=== PATIENT | female | born 1985 | race Caucasian/White ===

== ENCOUNTER 2017-11-10 10:51 | Emergency (ER) | payer SELFPAY ==
[~2017-11-10] VITALS: Ht 162.6 cm; Wt 61.2 kg
[2017-11-10 10:55] VITALS: BP_SYST 148
--- NOTE | 2017-11-10 11:40 | NUR ---
Pt complains of having pelvic pain for two days. Per patient, she was here and diagnosed with a UTI and was prescribed Bactrim. Pt states she is still in pain while urinating. Pt denies fever, N/V, or diarrhea. No other injuries/complaints per patient.
--- NOTE | 2017-11-10 11:47 | NUR ---
Patient to ER bed 7 to gown for evaluation. Side rails up. Report given to Malika YANG.
--- NOTE | 2017-11-10 11:55 | NUR ---
ER Dr. Turpin at bedside examining patient.
[2017-11-10 12:12] LABS: BILIRUBIN,URINE 1+ (NEGATIVE); BLOOD, URINE 3+ (NEGATIVE); CLARITY/URINE HAZY (CLEAR); COLOR,URINE YELLOW (YELLOW); GLUCOSE,URINE NEGATIVE (NEGATIVE); KETONES,URINE TRACE (NEGATIVE); LEUKOCYTE ESTERASE ,URINE NEGATIVE (NEGATIVE); NITRITE, URINE NEGATIVE (NEGATIVE); PH,URINE 6.5 (5.0-8.0); PROTEIN URINE 1+ (NEGATIVE); UROBILINOGEN,URINE 0.2 (0.2-1.0)
[2017-11-10 12:27] LABS: BACTERIA,URINE RARE /HPF (None Seen); RBC,URINE 20-50 /HPF (0-3); WBC,URINE 0-3 /HPF (0-3)
--- NOTE | 2017-11-10 12:49 | NUR ---
Pt went to radiology in stable condition.
[2017-11-10 13:02] LABS: BASOPHILS % (AUTO) 0.7 % (0.0-2.0); EOSINOPHILS # (AUTO) 0.1 K/uL (0.0-0.4); EOSINOPHILS % (AUTO) 1.9 % (0.0-4.0); HEMOGLOBIN 13.6 g/dL (12.0-16.0); LYMPHOCYTES # (AUTO) 1.3 K/uL (1.0-5.5); LYMPHOCYTES % (AUTO) 24.7 % (20.5-51.5); MEAN CORPUSCULAR HEMOGLOBIN 31 pg (27-31); MEAN CORPUSCULAR HGB CONC 34 % (32-36); MEAN CORPUSCULAR VOLUME 92 fL (79.0-98.0); MONOCYTES # (AUTO) 0.5 K/uL (0.0-1.0); MONOCYTES % (AUTO) 9.2 % (1.7-9.3); NEUTROPHILS # (AUTO) 3.3 K/uL (1.8-7.7); NEUTROPHILS % (AUTO) 63.5 % (40.0-70.0); PLATELET COUNT (AUTO) 314 K/uL (130-430); RED BLOOD CELL COUNT(AUTO) 4.36 MIL/uL (4.2-6.2); RED CELL DISTRIBUTION WIDTH 11.1 % (9.0-15.0); WHITE BLOOD COUNT (AUTO) 5.3 K/uL (4.8-10.8)
--- NOTE | 2017-11-10 13:02 | NUR ---
Pt returned from radiology in stable condition.
[2017-11-10] MEDS: KETOROLAC TROMETHAMINE 30 MG VIAL IVP ONE (13:05)
[2017-11-10] MEDS: NACL 0.9% 1,000 ML IV ONE (13:06)
[2017-11-10 13:15] LABS: CREATININE 0.89 mg/dL (0.55-1.30); POTASSIUM 3.8 mmol/L (3.5-5.1)
[2017-11-10 13:21] LABS: ALBUMIN 3.9 g/dL (3.4-4.8); TOTAL BILIRUBIN 0.3 mg/dL (0.0-1.0)
[2017-11-10 13:23] LABS: PROTHROMBIN TIME 9.8 SECS (9.5-12.5)
--- NOTE | 2017-11-10 14:29 | NUR ---
Dr Turpin at bedside updating patient
[2017-11-10] MEDS ORDERED: INSULIN REGULAR, HUMAN 100 UNITS/ML, 10 ML VIAL (novoLIN R) SUBCUT PRN (15:00)
[2017-11-10] MEDS ORDERED: cloNIDine HCL 0.2 MG TABLET PO PRN (15:00)
[2017-11-10] MEDS ORDERED: NITROGLYCERIN 1 INCH (GM) OINT. TP ONE (15:00)
--- NOTE | 2017-11-10 15:00 | NUR ---
Patient given written and verbal discharge instructions and verbalizes understanding. ER MD discussed with patient the results and treatment provided. Patient in stable condition. ID arm band removed. IV catheter removed intact and dressing applied, no active bleeding. Rx of Flomax,[place] Font[place],Ibuprofen given. Patient educated on pain management and to follow up with PMD. Pain Scale 2/10 tolerable for pt . Opportunity for questions provided and answered.
[2017-11-10] MEDS: HYDROcodone/ACETAMIN 5-325 MG TAB (NORCO/ VICODIN) PO ONE (15:02)
[2017-11-10 15:07] VITALS: BP_SYST 148
== END 2017-11-10 15:07 | disposition home or self-care (01) ==
LOC: SED 10:51
DX: N83.209 Unspecified ovarian cyst, unspecified side (principal); N23 Unspecified renal colic; Z98.51 Tubal ligation status
CPT/HCPCS: 36415; 74176; 76830; 76857; 80053; 81000; 81025; 82150; 83690; 85025; 85610; 96361; 96374; 99285; J1885; J7030